=== PATIENT | male | born 1975 | race Caucasian/White ===

== ENCOUNTER 2018-12-16 14:54 | Emergency (ER) | payer MEDICAID ==
[~2018-12-16] VITALS: Ht 175.3 cm; Wt 76.7 kg
[2018-12-16 15:15] VITALS: Ht 175.3 cm; Wt 76.7 kg
[2018-12-16 21:05] VITALS: BP 141/90
== END 2018-12-16 21:05 | disposition short-term general hospital (02) ==
LOC: ED 14:54
DX: S92.061A Displaced intraarticular fracture of right calcaneus, initial encounter for closed fracture (principal); W13.8XXA Fall from, out of or through other building or structure, initial encounter; Y93.39 Activity, other involving climbing, rappelling and jumping off; Y92.89 Other specified places as the place of occurrence of the external cause; Y99.8 Other external cause status